=== PATIENT | male | born 1965 | race Caucasian/White ===

== ENCOUNTER 2016-07-24 08:01 | Inpatient (IN) | payer OTHER ==
[2016-07-09 09:24] VITALS: BMI 26.0
--- NOTE | 2016-07-09 10:06 | PAT Medication Instructions ---
Service Date Jul 09, 2016. Current Home Medication List Oxycodone/Acetaminophen 5MG/325MG (Percocet 5MG/325MG), 1-2 TABLETS PO Q4H PRN for Pain Medication Instructions For Your Scheduled Surgery - Take the following medications the morning of surgery with a sip of water: Oxycodone/Acetaminophen 5MG/325MG (Percocet 5MG/325MG), 1-2 TABLETS PO Q4H PRN for Pain (can take up to four hours prior to surgery if needed) - Take the following medications as scheduled the night before surgery: Oxycodone/Acetaminophen 5MG/325MG (Percocet 5MG/325MG), 1-2 TABLETS PO Q4H PRN for Pain If you have any questions please call us at [phone] or [phone] ( Aimee) or [phone]
--- NOTE | 2016-07-09 11:06 | DIAGNOSTIC IMAGING REPORT ---
CHEST PREADMISSION(PA/LAT) CLINICAL HISTORY: Preoperative evaluation COMPARISON STUDY: No previous studies for comparison. FINDINGS: Lung volumes are normal. Lungs are clear. There is no pneumothorax or pleural effusion. Cardiac size is normal. Mediastinal contours are normal. There is an azygos fissure. IMPRESSION: No acute cardiopulmonary findings. Electronically signed by: Humza Kuo M.D. 07/09/2016 11:04 AM
[2016-07-09 11:22] LABS: BASO % 0.2 %; BASO ABS # 0.02 K/uL (0-0.2); COMPLETE YES; EOS % 3.1 %; HEMATOCRIT 45.1 % (42-52); IG% 0.2 %; LYMPH % 25.4 %; LYMPH ABS # 2.15 K/uL (1.2-3.4); MEAN CELL VOLUME 87.4 fL (80-100); MEAN CORPUSCULAR HEMOGLOBIN 30.4 pg (25-34); MEAN CORPUSCULAR HGB CONC 34.8 g/dl (32-36); MEAN PLATELET VOLUME 10.1 fL (7.4-10.4); MONO % 6.3 %; NEUT % 64.8 %; PLATELET COUNT 321 K/uL (130-400); RED BLOOD COUNT 5.16 M/uL (4.7-6.1); WHITE BLOOD COUNT 8.46 K/uL (4.8-10.8)
[2016-07-09 11:26] LABS: URINE APPEARANCE CLEAR (CLEAR); URINE BILIRUBIN NEG (NEG); URINE COLOR YELLOW; URINE NITRITE NEG (NEG); URINE SPECIFIC GRAVITY 1.019 (1.000-1.030); UROBILINOGEN NEG (NEG)
[2016-07-09 11:32] LABS: MANUAL MICROSCOPIC REQUIRED? NO; REVIEW REQ? NO
[2016-07-09 12:14] LABS: BUN/CREATININE RATIO 10.6 (10-20); CALCIUM 9.9 mg/dl (8.5-10.1); CREATININE 1.1 mg/dl (0.60-1.40); POTASSIUM 4.8 mmol/L (3.5-5.1)
[2016-07-24] VITALS (8 sets, daily range): BP systolic 109–140; BP diastolic 58–93; PULSE 56–73; TEMP 36.4–36.9; O2SAT 95–99; Ht 167.6 cm; Wt 75.3 kg
[~2016-07-24] VITALS: Ht 167.6 cm; Wt 75.3 kg
[~2016-07-24 08:01] MED LIST: CEFAZOLIN 2000 MG/60 ML D5W 60 ML IV SCH; CeleBREX 200 MG CAP PO SCH; LACTATED RINGER'S 1000ML IV SCH; OXYC-57 PO; PREGABALIN 75 MG CAP PO SCH
[2016-07-24] MEDS ORDERED: FENTANYL CITRATE INJ 50 MCG/1 ML 2 ML VIAL ONE ×3 (08:46→10:08)
[2016-07-24] MEDS ORDERED: MIDAZOLAM HCL 1 MG/ML 2ML VIAL ONE (08:46)
[2016-07-24] MEDS ORDERED: OXYC-57 PO (09:13)
--- NOTE | 2016-07-24 09:14 | Discharge Instructions ---
Discharge Instructions Admission Reason for Admission: Spinal Stenosis Discharge Discharge Diagnosis / Problem: Lumbar Stenosis Discharge Goals Goal(s): Decrease discomfort, Improve function, Increase independence Activity Recommendations Activity Limitations: as noted below Lifting Limitations: no more than 5 pounds Exercise/Sports Limitations: until after follow-up appointment May Resume Sexual Activity: after follow-up appointment Shower/Bathe: may shower/bathe in 3 days . Instructions / Follow-Up Instructions / Follow-Up ACTIVITY RECOMMENDATIONS: SELF CARE INSTRUCTIONS AFTER THORACIC/LUMBAR FUSIONS 1. You may walk to your tolerance. It is good exercise for your legs and back. Expect some back and intermittent leg aches and pains. 2. You may perform "counter-top" level activities (make a sandwich, teena with a project, etc.). 3. No bending or lifting of more than 10 pounds or back twisting of any nature (roll like a log when turning in bed). 4. You may ride in a car for 20-30 minutes at a time. No driving until after your first visit with your doctor. 5. Frequent changes of position and restricting sitting to 30 minutes at a time will help limit the amount of back spasms and stiffness you may experience. 6. You may discontinue the use of ambulatory aids (cane, crutches, etc.) once your strength and confidence allow. 7. You may paper baling machine operator the shower and let water strike your incision when you arrive home at least once daily. Do not take a tub bath, sit in a hot tub or go into a swimming pool until after your first recheck in the office. SPECIAL CARE INSTRUCTIONS: VERY IMPORTANT TO READ AND REVIEW A. Your surgical incision has been closed with a cosmetic suture under the skin that will dissolve in about 6 weeks. In 14 days, you can use a pair of clean scissors and cut the suture that is left outside of the skin at the ends of your incision. 1. The small skin tapes can be removed 7 days after surgery if they have not fallen off by that point. 2. You may keep the wound open to air as much as possible to promote healing after post-op day number 5 unless told otherwise by your doctor. 3. If you think the wound looks like it is becoming infected (redness or worsening drainage) and/or you are experiencing fever, chill or worsening back pain and muscle spasms, contact the office so that we may evaluate you as soon as possible. B. Complications are uncommon, but please contact us if you have any signs or symptoms of: 1. wound infection (fever higher than 102.5 degrees F, redness, separation of wound, drainage, or increasing pain from the incision) 2. blood clots in legs (pain, swelling, redness and warmth in legs) 3. urinary tract infection (fever higher than 102.5 degrees F, burning upon urination or increased frequency of urination) 4. nerve problems (inability to walk on your toes or heels, numbness, loss of bowel or bladder control) 5. any other symptoms that concern you C. Please call the office at if you have any concerns or questions about your operation or recovery. D. No smoking! Smoking drastically decreases the chance of a solid fusion. E. Do not take any anti-inflammatory medications (Indocin, Advil, Motrin, Aspirin, Naprosyn, etc.) as these may inhibit the chance of a solid fusion. Tylenol is okay to take for pain. MANAGING PAIN AFTER SPINAL SURGERY 1. Narcotic medication is intended for short-term use and will be provided for surgical pain. Surgical pain usually lasts for a period of 4-6 weeks. Narcotic medication includes Percocet, Vicodin, Darvocet, Tylenol #3 or Lortab. 2. Longer-term pain is more appropriately treated with non-narcotic medication such as Tylenol ES. 3. Muscle spasm is not appropriately treated with narcotics. Muscle relaxers such as Soma, Flexeril or Skelaxin can be used along with Tylenol ES. 4. Remember that we all live with some "aches and pains". This is not unusual or uncommon after an injury or as we get older. a. Back pain is expected and may include muscle spasms for 4 to 6 weeks after surgery. The pain should gradually improve. If the pain worsens for no apparent reason, please contact the office. b. Intermittent leg pain may also be experienced and should not be concerned about unless it worsens for no apparent reason. If so, please contact the office. 5. We will provide appropriate medication within the normal guidelines of their prescribed use. We will also be very cautious and aware of potential abuse and extended duration of patients' medication needs. a. Pain medications are for your comfort and to assist with sleep and rest so that the tissue can heal. They are not provided in order to return to normal activity and should not be used through the day. To do so or worsening pain at night can result from ongoing tissue damage and development of tolerance to the prescribed medicine. 6. Please allow 2-3 days to process refills. Prescriptions will not be mailed but must be picked up at the office. FOLLOW UP VISIT: Keep your scheduled follow-up appointment. Any questions, please call the office at . Current Hospital Diet Patient's current hospital diet: Discharge Diet Recommended Diet: Regular Diet Pending Studies Studies pending at discharge: no Medical Emergencies . Who to Call and When: Medical Emergencies: If at any time you feel your situation is an emergency, please call 911 immediately. . Non-Emergent Contact Non-Emergency issues call your: Surgeon Call Non-Emergent contact if: temperature is above 101, your pain is not controlled, your pain is worsening, your pain is unusual for you, your pain is concerning you, wound has increased drainage, wound has increased redness, wound has increased pain, you have any medication questions . "Provider Documentation" section prepared by Errol Martinez. VTE Core Measure Inpt VTE Proph given/why not?: Niko Jeff
--- NOTE | 2016-07-24 09:22 | History and Physical ---
History & Physical Date Jul 24, 2016. Chief Complaint LBP and ari leg pain History of Present Illness The patient is a 51 year old male with complaints of above who has had symptoms for years that failed to respond to outpatient management. MRI and xrays show spinal stenosis L3-S1 and DDD with a degen scoliosis. He denies weakness. intermittent numbness in legs. Past Medical/Surgical History denies CAD, SOB Additional History Hepatic Disease: No Endocrine Disorder: No Kidney Disease: No Hypertension: No Heart Disease: No Bleeding Tendencies: No Infectious Diseases: No Allergies Coded Allergies: No Known Allergies (Unverified , 07/24/16) Home Medications Scheduled PRN Oxycodone/Acetaminophen 5MG/325MG (Percocet 5MG/325MG), 1-2 TABLETS PO Q4H PRN for Pain Physical Examination Skin: warm/dry, no rash Eyes: normal inspection ENT: normal ENT inspection, pharynx normal Head: normocephalic, atraumatic Neck: supple, trachea midline Respiratory/Chest: lungs clear, no respiratory distress Cardiovascular: regular rate, rhythm Back: normal inspection Extremities: normal inspection, normal range of motion Neurologic/Psych: no motor/sensory deficits, alert, normal reflexes, oriented x 3 Diagnosis L3-S1 stenosis and degenerative scoliosis Plan of Treatment L3-S1 decomp/fusion, possible L2-3 PSF
[2016-07-24] MEDS ORDERED: PHENYLEPHRINE 100MCG/ML 5ML SYR IV PRN (09:30)
[2016-07-24] MEDS ORDERED: LABETALOL HCL IV 5 MG/ML 20ML IV PRN (09:30)
[2016-07-24] MEDS ORDERED: MoRPHine SULFATE 10 MG/ML CARP/VIAL IV PRN (09:30)
[2016-07-24] MEDS ORDERED: FLUMAZENIL 0.1 MG/1 ML 10 ML VIAL IV PRN (09:30)
[2016-07-24] MEDS ORDERED: EpHEDrine SULFATE INJ 50 MG/ML AMP IV PRN (09:30)
[2016-07-24] MEDS ORDERED: NALOXONE HCL 0.4 MG/1 ML VIAL/CARP IV PRN ×3 (09:30→11:30)
[2016-07-24] MEDS ORDERED: ATROPINE SULFATE 0.1 MG/ML 5ML SYR IV PRN (09:30)
[2016-07-24] MEDS ORDERED: MEPERIDINE HCL 25 MG/ML CARP IV PRN (09:30)
[2016-07-24] MEDS ORDERED: ONDANSETRON INJ 2 MG/ML 2 ML VIAL IV PRN ×2 (09:30→11:30)
[2016-07-24] MEDS ORDERED: HYDROmorphone INJ 2 MG/ML SYR/VIAL ONE (10:08)
[2016-07-24] MEDS ORDERED: PHENYLEPHRINE 100MCG/ML 5ML SYR ONE (10:35)
[2016-07-24] MEDS ORDERED: THROMBIN 5000 UNITS KIT TOP ONE (10:55)
[2016-07-24] MEDS ORDERED: BACITRACIN 50000 UNIT VIAL IR ONE (10:55)
[2016-07-24] MEDS ORDERED: BUPIVACAINE/EPINEPHRINE 0.5% MPF 1:200,000 30 ML VIAL INJ ONE (10:55)
[2016-07-24] MEDS ORDERED: DURASEAL DURAL SEALANT 5ML TOP ONE (10:55)
[2016-07-24] MEDS ORDERED: THROMBIN FOR SOLN 20000 UNIT KIT TOP ONE (10:55)
[2016-07-24] MEDS ORDERED: FLOSEAL HEMOSTATIC MATRIX 10ML TOP ONE (10:55)
[2016-07-24] MEDS ORDERED: GLYCOPYRROLATE INJ 0.2 MG/ML VIAL ONE (11:16)
[2016-07-24] MEDS ORDERED: NEOSTIGMINE METHYLSULFATE 1 MG/ML 10ML VIAL ONE (11:16)
[2016-07-24] MEDS ORDERED: ONDANSETRON INJ 2 MG/ML 2 ML VIAL ONE ×2 (11:16→11:51)
[2016-07-24] MEDS ORDERED: ROCURONIUM BROMIDE 10 MG/ML 5 ML VIAL ONE (11:16)
[2016-07-24] MEDS ORDERED: PROPOFOL IV EMULSION 10 MG/ML 20 ML VIAL IV ONE (11:16)
[2016-07-24] MEDS ORDERED: SODIUM CHLORIDE 0.9% 1000ML 1,000 ML IV SCH (11:16)
[2016-07-24] MEDS ORDERED: EpHEDrine SULFATE 50MG/5ML SYR ONE (11:16)
[2016-07-24] MEDS ORDERED: DEXAMETHASONE SOD INJ 4 MG/ML VIAL ONE (11:16)
[2016-07-24] MEDS ORDERED: LIDOCAINE HCL 2% 2 ML VIAL (20MG/ML) ONE (11:16)
--- NOTE | 2016-07-24 11:16 | [facility] Post Operative Brief Note ---
Immediate Operative Summary Operative Date Jul 24, 2016. Pre-Operative Diagnosis SPINAL STENOSIS Post-Operative Diagnosis SAME PREOP Procedure(s) Performed L3-S1 DECOMPRESSION AND INSTRUMENTED FUSION, NTERBODY FUSION, USE OF INFUSE AND ARTERIOCYTE Surgeon DR. Gareth SKINNER Insulation Packer Surgeon(s) Robin CRUZ PAC Estimated Blood Loss 400 Findings dict Specimens NONE
--- NOTE | 2016-07-24 11:28 | DIAGNOSTIC IMAGING REPORT ---
LUMBAR SPINE, INTRAOPERATIVE FLUOROSCOPY HISTORY: L3 S1 decompression and fusion. FLUOROSCOPY TIME: 8 seconds. FINDINGS: Intraoperative fluoroscopy was provided for the lumbar spine. 2 fluoroscopic spot images were obtained. Posterior decompression and fusion from L3 through S1 with pedicle screws and rods. The hardware appears intact. IMPRESSION: Fluoroscopy provided for a L3-S1 posterior decompression and fusion. Electronically signed by: Errol Shepard M.D. 07/24/2016 11:26 AM Dictated Date/Time: 07/24/2016 11:25 AM
[2016-07-24] MEDS ORDERED: SOD PHOSPHATE/SOD BIPHOSPHATE ENEMA 132 ML BTL PR PRN (11:30)
[2016-07-24] MEDS ORDERED: MAGNESIUM HYDROXIDE SUSP 30 ML UDC PO PRN (11:30)
[2016-07-24] MEDS ORDERED: LORAZEPAM INJ 0.5 MG in SYRINGE 0.75 ML IV PRN (11:30)
[2016-07-24] MEDS ORDERED: ACETAMINOPHEN IV 100 ML IV PRN (11:30)
[2016-07-24] MEDS ORDERED: FAMOTIDINE 20 MG TAB PO PRN (11:30)
[2016-07-24] MEDS ORDERED: LORAZEPAM 0.5 MG TAB PO PRN (11:30)
[2016-07-24] MEDS ORDERED: ALUMINUM/MAGNESIUM SUSP 30 ML UDC PO PRN (11:30)
[2016-07-24] MEDS ORDERED: BISACODYL 10 MG SUPP PR PRN (11:30)
[2016-07-24] MEDS ORDERED: PROMETHAZINE HCL INJ 12.5 MG in SODIUM CHLORIDE 0.9% 50ML 50 ML IV PRN (11:30)
[2016-07-24] MEDS ORDERED: METOCLOPRAMIDE HCL INJ 5 MG/ML 2 ML VIAL IV PRN (11:30)
[2016-07-24] MEDS ORDERED: hydrOXYzine HCL 25 MG TAB PO PRN (11:30)
[2016-07-24] MEDS ORDERED: ESMOLOL HCL 10 MG/ML 10 ML VIAL ONE (11:51)
[2016-07-24] MEDS ORDERED: METOCLOPRAMIDE HCL INJ 5 MG/ML 2 ML VIAL ONE (11:51)
[2016-07-24] MEDS ORDERED: KETOROLAC TROMETHAMINE 30 MG/ML VIAL ONE (11:51)
[2016-07-24] MEDS: HYDROmorphone INJ 1 MG/ML SYR IV PRN ×4 (12:03→12:48)
[2016-07-24] MEDS: HYDROmorphone HCL 0.5MG/ML 50 ML CASSETTE IV PRN ×3 (12:10→23:54)
--- NOTE | 2016-07-24 12:30 | OPERATIVE REPORT ---
DATE OF OPERATION: 07/24/2016 PREOPERATIVE DIAGNOSES: 1. Lumbar spinal stenosis L3-L4, L4-L5 and L5-S1. 2. Degenerative scoliosis. 3. Multilevel degenerative disc disease L3 to the sacrum. POSTOPERATIVE DIAGNOSES: Same. PROCEDURES: 1. L3, L4 and L5 laminectomies with bilateral medial facetectomies. 2. Segmental pedicle screw instrumentation -- bilateral L3, L4, L5 and S1 with K2M [place] pedicle screws. 3. Posterolateral fusion L3-S1 -- bilateral with Infuse BMP on a collagen sponge, tricalcium phosphate, local bone, bone putty and bone marrow aspirate. 4. Right iliac crest bone marrow aspiration stem cell concentration with Arteriocyte. SURGEON: Dr. Dunham. MEAT GRADER: Errol Martinez PA-C. Please note he participated in all portions of the procedure and was critical for performance of the procedure, participated with positioning, prepping, draping, retraction and wound closure. ANESTHESIA: General endotracheal anesthesia. COMPLICATIONS: None. ESTIMATED BLOOD LOSS: 400 mL. DESCRIPTION OF PROCEDURE: After identification of patient and operative level, he was brought to the OR where he underwent induction of general anesthesia. He was then positioned prone on De OR table. All bony prominences were well padded. Care was taken to avoid pressure on the periorbital area. Lumbosacral area was sterilely prepped and draped in usual fashion. Antibiotics were administered. Time-out was performed. Level was confirmed and skin incision was made from spinous process of L2 to the sacrum after infiltration with a local anesthetic. I exposed the posterior elements out to the transverse processes from L3 to the sacral ala, placed Gelpi retractors and confirmed level with fluoroscopy. I then did laminectomies of L3, L4 and L5 to accomplish midline decompression with takedown ligamentum flavum. I then used an osteotome to remove the medial facets at L3-L4, L4-L5 and L5-S1. I completed decompression and performed foraminotomies as necessary to decompress the nerve roots. I palpated all nerve roots were decompressed from L3 to the sacrum bilaterally. I placed pedicle screws bilaterally at L3, L4, L5 and S1 with K2M [place] pedicle screws. I checked position with fluoroscopy and then lowered the Adonis frame to restore lordosis, applied rods and end caps final tightening. I applied a crosslink final tightened. I then irrigated with bacitracin solution and decorticated transverse processes from L3 to the sacral ala bilaterally with a high speed zeeshan as well as facets and then packed the lateral gutters with bone graft mixture. Bone marrow aspirate was taken from right iliac crest via separate stab incision with a Jamshidi needle and concentrated with Arteriocyte and applied bone graft trolley car operator as well. I then confirmed hemostasis and closed in layered fashion over RATNA drain. All sponge and needle counts were correct at the end of the case. I attest to the content of the Intraoperative Record and any orders documented therein. Any exceptio ns are noted below.
--- NOTE | 2016-07-24 12:43 | Anesthesiology Progress Note ---
Anesthesia Post Op Note Date & Time Jul 24, 2016 at 12:43 Vital Signs Pain Intensity: 3 Vital Signs Past 12 Hours Date Time Temp Pulse Resp B/P Pulse Ox O2 Delivery O2 Flow Rate FiO2 07/24/16 11:50 72 13 135/81 95 Nasal Cannula 4 07/24/16 11:47 36.6 93 16 144/78 92 Room Air 07/24/16 08:20 36.4 67 18 140/93 99 Room Air Notes Mental Status: alert / awake / arousable, participated in evaluation Pt Amnestic to Procedure: Yes Nausea / Vomiting: adequately controlled Pain: adequately controlled Airway Patency, RR, SpO2: stable & adequate BP & HR: stable & adequate Hydration State: stable & adequate Anesthetic Complications: no major complications apparent
[2016-07-24] MEDS: SODIUM CHLORIDE 0.9% 1000ML 1,000 ML IV SCH ×2 (17:35→23:50)
[2016-07-24] MEDS: CEFAZOLIN IV 1,000 MG in DEXTROSE 5% 50ML 50 ML IV SCH (17:37)
[2016-07-24] MEDS: DEXAMETHASONE INJ 6 MG in SYRINGE 0 ML IV SCH (21:12)
[2016-07-24] MEDS: DOCUSATE SODIUM/SENNA 50/8.6MG TAB PO SCH (21:12)
[2016-07-25] MEDS: CEFAZOLIN IV 1,000 MG in DEXTROSE 5% 50ML 50 ML IV SCH (02:07)
[2016-07-25 03:20] VITALS: BP 110/62; PULSE 73; TEMP 36.8; O2SAT 93
[2016-07-25] MEDS: DEXAMETHASONE INJ 6 MG in SYRINGE 0 ML IV SCH ×2 (04:12→13:31)
[2016-07-25] MEDS ORDERED: DC PCA SCH (06:00)
[2016-07-25] MEDS ORDERED: HYDROmorphone INJ 0.5 MG/0.5 ML SYR IV PRN (06:00)
[2016-07-25] MEDS ORDERED: HYDROmorphone INJ 1 MG/ML SYR IV PRN (06:00)
[2016-07-25 06:17] LABS: BASO % 0.1 %; BASO ABS # 0.01 K/uL (0-0.2); COMPLETE YES; IG% 0.2 %; LYMPH % 6.8 %; LYMPH ABS # 1.11 K/uL (1.2-3.4); MEAN CELL VOLUME 86.7 fL (80-100); MEAN CORPUSCULAR HEMOGLOBIN 29.3 pg (25-34); MEAN CORPUSCULAR HGB CONC 33.8 g/dl (32-36); NEUT % 87.9 %; PLATELET COUNT 207 K/uL (130-400); RED BLOOD COUNT 3.92 M/uL (4.7-6.1); WHITE BLOOD COUNT 16.42 K/uL (4.8-10.8)
[2016-07-25] MEDS ORDERED: NURSING VERBAL MED ORDER ONE (06:30)
[2016-07-25 06:32] LABS: BUN/CREATININE RATIO 16.4 (10-20); CALCIUM 8.8 mg/dl (8.5-10.1); CREATININE 0.97 mg/dl (0.60-1.40); POTASSIUM 4.6 mmol/L (3.5-5.1)
--- NOTE | 2016-07-25 06:55 | Orthopedic Progress Note ---
Orthopedic Progress Note Date of Service Jul 25, 2016. Subjective Reports: feeling well, pain controlled w PO medications, Denies: SOB, calf pain , complaints, light headedness, nausea / vomiting Additional Notes: Patient is doing extremely well. He has ambulated the floor 2x already. His pain is well managed. Restful night. No medical issues to report this AM. Objective calves soft nontender, N/V intact, capillary refill less than 2 sec., dressing C /D/I, A&O x3, toes mobile, hemovac drainage Date Time Temp Pulse Resp B/P Pulse Ox O2 Delivery O2 Flow Rate FiO2 07/25/16 03:20 36.8 73 18 110/62 93 Room Air 07/24/16 23:45 Room Air 07/24/16 22:47 36.9 61 18 113/66 95 Room Air 07/24/16 21:00 Room Air 07/24/16 19:48 36.7 62 18 129/72 95 Room Air 07/24/16 17:40 63 12 123/74 97 Nasal Cannula 4.0 07/24/16 16:28 36.7 60 17 109/58 97 Nasal Cannula 4.0 07/24/16 15:30 36.5 73 17 115/72 98 Nasal Cannula 4.0 07/24/16 15:00 36.8 61 17 120/74 96 Nasal Cannula 4.0 07/24/16 14:30 36.6 56 16 119/75 98 Nasal Cannula 4.0 07/24/16 14:30 Nasal Cannula 4.0 07/24/16 14:30 Nasal Cannula 2.0 07/24/16 14:13 128/73 07/24/16 14:09 59 7 97 07/24/16 14:09 59 7 07/24/16 14:04 59 15 98 07/24/16 14:04 62 15 07/24/16 13:59 57 14 97 07/24/16 13:59 57 14 07/24/16 13:58 124/73 07/24/16 13:54 67 14 97 07/24/16 13:54 69 14 07/24/16 13:49 66 18 07/24/16 13:49 66 18 97 07/24/16 13:45 58 11 113/73 96 Nasal Cannula 4 07/24/16 13:44 63 12 97 07/24/16 13:44 65 12 07/24/16 13:43 113/73 07/24/16 13:39 63 9 07/24/16 13:39 64 9 96 07/24/16 13:34 77 14 07/24/16 13:34 76 14 97 07/24/16 13:30 68 12 113/63 96 Nasal Cannula 4 07/24/16 13:29 54 11 97 07/24/16 13:29 55 11 07/24/16 13:28 113/63 07/24/16 13:24 60 14 07/24/16 13:24 60 14 97 07/24/16 13:19 66 14 96 07/24/16 13:19 68 14 07/24/16 13:15 61 12 102/62 97 Nasal Cannula 4 07/24/16 13:15 102/62 07/24/16 13:14 73 12 96 07/24/16 13:14 69 12 07/24/16 13:09 66 14 96 07/24/16 13:09 68 14 07/24/16 13:04 69 13 07/24/16 13:04 68 13 96 07/24/16 13:03 124/69 07/24/16 12:59 66 9 97 07/24/16 12:59 63 9 07/24/16 12:58 123/71 07/24/16 12:55 36.3 67 16 123/74 96 Nasal Cannula 4 07/24/16 12:54 65 12 07/24/16 12:54 64 12 96 07/24/16 12:53 123/74 07/24/16 12:49 68 6 07/24/16 12:49 67 6 97 07/24/16 12:48 122/75 07/24/16 12:44 65 10 07/24/16 12:44 64 10 123/74 97 07/24/16 12:39 68 14 97 07/24/16 12:39 66 14 07/24/16 12:38 129/79 07/24/16 12:37 78 14 97 07/24/16 12:37 78 14 07/24/16 12:33 113/85 07/24/16 12:32 67 14 97 07/24/16 12:32 67 14 07/24/16 12:28 117/82 07/24/16 12:27 69 10 96 07/24/16 12:27 70 10 07/24/16 12:23 128/82 07/24/16 12:22 60 7 07/24/16 12:22 61 7 97 07/24/16 12:18 125/70 07/24/16 12:17 62 6 97 07/24/16 12:17 61 6 07/24/16 12:13 117/78 07/24/16 12:12 65 10 07/24/16 12:12 66 10 97 07/24/16 12:08 125/73 07/24/16 12:07 61 12 98 07/24/16 12:07 61 12 07/24/16 12:03 116/85 07/24/16 12:02 76 16 07/24/16 12:02 76 16 97 07/24/16 11:58 115/72 07/24/16 11:57 69 11 07/24/16 11:57 70 11 97 07/24/16 11:53 126/76 07/24/16 11:52 74 7 96 07/24/16 11:52 75 7 07/24/16 11:50 72 13 135/81 95 Nasal Cannula 4 07/24/16 11:48 135/81 07/24/16 11:47 36.6 93 16 144/78 92 Room Air 07/24/16 11:47 74 15 95 07/24/16 11:47 74 15 07/24/16 08:20 36.4 67 18 140/93 99 Room Air Laboratory Results 24 Hours: Test 07/25/16 05:20 White Blood Count 16.42 K/uL Red Blood Count 3.92 M/uL Hemoglobin 11.5 g/dL Hematocrit 34.0 % Mean Corpuscular Volume 86.7 fL Mean Corpuscular Hemoglobin 29.3 pg Mean Corpuscular Hemoglobin Concent 33.8 g/dl Platelet Count 207 K/uL Mean Platelet Volume 10.0 fL Neutrophils (%) (Auto) 87.9 % Lymphocytes (%) (Auto) 6.8 % Monocytes (%) (Auto) 5.0 % Eosinophils (%) (Auto) 0.0 % Basophils (%) (Auto) 0.1 % Neutrophils # (Auto) 14.44 K/uL Lymphocytes # (Auto) 1.11 K/uL Monocytes # (Auto) 0.82 K/uL Eosinophils # (Auto) 0.00 K/uL Basophils # (Auto) 0.01 K/uL Assessment & Plan Assessment: s/p lumbar decompression and fusion Plan: Pain control, PT today, D/C [place], Continue RATNA, DVT prophylaxis, consider discharge Sat AM if stable
[2016-07-25 07:11] VITALS: BP 151/82; PULSE 61; TEMP 36.9; O2SAT 96
--- NOTE | 2016-07-25 07:30 | Anesthesiology Progress Note ---
Anesthesia Post Op Note Date & Time Jul 25, 2016 at 07:29 Vital Signs Pain Intensity: 0.0 Vital Signs Past 12 Hours Date Time Temp Pulse Resp B/P Pulse Ox O2 Delivery O2 Flow Rate FiO2 07/25/16 07:11 36.9 61 18 151/82 96 Room Air 07/25/16 03:20 36.8 73 18 110/62 93 Room Air 07/24/16 23:45 Room Air 07/24/16 22:47 36.9 61 18 113/66 95 Room Air 07/24/16 21:00 Room Air 07/24/16 19:48 36.7 62 18 129/72 95 Room Air Notes Mental Status: alert / awake / arousable, participated in evaluation Pt Amnestic to Procedure: Yes Nausea / Vomiting: adequately controlled Pain: adequately controlled Airway Patency, RR, SpO2: stable & adequate BP & HR: stable & adequate Hydration State: stable & adequate Anesthetic Complications: no major complications apparent
[2016-07-25] MEDS: OXYCODONE HCL IR 5 MG TAB (IMMEDIATE RELEASE) PO PRN ×3 (08:21→19:36)
[2016-07-25 11:40] VITALS: BP 160/85; PULSE 87; TEMP 36.7; O2SAT 97
[2016-07-25 15:09] VITALS: BP 132/72; PULSE 72; TEMP 37; O2SAT 94
[2016-07-25] MEDS: DOCUSATE SODIUM/SENNA 50/8.6MG TAB PO SCH (21:30)
[2016-07-25 23:45] VITALS: BP 143/85; PULSE 61; TEMP 36.8; O2SAT 95
[2016-07-26] MEDS: OXYCODONE HCL IR 5 MG TAB (IMMEDIATE RELEASE) PO PRN ×2 (05:37→09:08)
[2016-07-26] MEDS ORDERED: POLYETHYLENE (MIRALAX) 17 GM PACK PO SCH (06:00)
[2016-07-26 07:30] VITALS: BP 124/72; PULSE 66; TEMP 36.7; O2SAT 95
[2016-07-26 11:32] VITALS: BP 124/72; PULSE 66; TEMP 36.7; O2SAT 95
--- NOTE | 2016-08-04 13:57 | DISCHARGE SUMMARY ---
PRINCIPAL DIAGNOSIS: L3-L4, L4-L5 and L5-S1 spinal stenosis with degenerative scoliosis and degenerative disc disease L3-S1. POSTOPERATIVE DIAGNOSIS: Same. PROCEDURE: L3, L4, L5 decompressions with an L3-S1 instrumented fusion. SURGEON: Dr. Mc Dunham. RAW STOCK MACHINE FEEDER: Errol Martinez PA-C. HISTORY OF PRESENT ILLNESS: Please refer to EMR. HOSPITAL COURSE: On 07/24/2016 Mr. Ricketts was admitted to [facility] with the above diagnosis. He was taken to preoperative holding where he was identified and evaluated and cleared for surgical procedure. He was transported to the operating room, introduced with general endotracheal anesthesia. Sterile conditions were set and he successfully underwent the above procedure without complication or issue. He was awakened in stable and satisfactory condition and taken to postoperative recovery where his vital signs and pain were monitored and managed successfully. He was then taken to the orthopedic floor for continued care. Throughout his stay, his vital signs, pain and labs were monitored and managed. He participated in physical therapy with good noted postoperative progress. RATNA output significantly diminished. There were no iatrogenic or hospital issues to report. He was evaluated on 07/26/2016 by provider and indicated for return home. On this date he was discharged from [facility]. DISPOSITION: Home. DISPOSITION CONDITION: Stable. NOTED COMPLICATIONS OR ISSUES: Zero. DISCHARGE INSTRUCTIONS: Please refer to EMR.
== END 2016-07-26 12:09 | disposition home or self-care (01) | DRG 460 ==
LOC: ENRESERVTM → ENRESERVDT → C.ACU 08:01 → C.3E 09:34
PROVIDERS: ADMIT Orthopaedic Surgery Orthopaedic Surgery of the Spine; ATTEND Orthopaedic Surgery Orthopaedic Surgery of the Spine
PROC: 0SG3071 Fusion of Lumbosacral Joint with Autologous Tissue Substitute, Posterior Approach, Posterior Column, Open Approach (ICD-10-PCS; principal; 2016-07-24 09:00)
PROC: 07DR3ZZ Extraction of Iliac Bone Marrow, Percutaneous Approach (ICD-10-PCS; principal; 2016-07-24 09:00)
PROC: 0SG1071 Fusion of 2 or more Lumbar Vertebral Joints with Autologous Tissue Substitute, Posterior Approach, Posterior Column, Open Approach (ICD-10-PCS; principal; 2016-07-24 09:00)
PROC: 3E0V0GB Introduction of Recombinant Bone Morphogenetic Protein into Bones, Open Approach (ICD-10-PCS; principal; 2016-07-24 09:00)
DX: M48.06 Spinal stenosis, lumbar region (principal); M41.86 Other forms of scoliosis, lumbar region; M41.87 Other forms of scoliosis, lumbosacral region; M47.896 Other spondylosis, lumbar region; M47.897 Other spondylosis, lumbosacral region